=== PATIENT | male | born 1965 | race Caucasian/White ===

== ENCOUNTER 2024-05-12 15:41 | Inpatient (IN) | payer BC, SELFPAY ==
[2024-05-12] VITALS (11 sets, daily range): BP systolic 114–139; BP diastolic 62–93; BMI 25.3
--- NOTE | 2024-05-12 11:12 | ED.GENMED ---
History of Present Illness
General
Chief Complaint: Dizziness
Source: patient
Time Seen by Provider: 05/12/24 10:57
History of Present Illness
History of Present Illness:
This patient is a very pleasant 58-year-old male who presents emergency department complaints of dizziness that started on Friday, described as a sense of spinning, worse when he moves his head, or stands, or certain movements. Sitting in the bed
at rest without movement he does not report dizziness. He also notes discomfort in the back of his neck rating up to the occipital area. This was not sudden in onset, but is persistent. He has associated nausea and occasional vomiting. He denies
diplopia, dysarthria, dysphagia, dyspnea, chest pain or pressure, fever, chills. He describes the headache as bitemporal and 'nagging'. He denies numbness but says that he has a sense of either tingling or feeling cold in his extremities. The
symptoms have continued since Friday which prompted his visit here. Patient states he had similar symptoms in March lasting about 3 days that resolved spontaneously and he attributed to the heat. He states that he did notice Friday evening while
out on the patio that he stood up and momentarily felt 'spins' dizziness that went away promptly. Otherwise, he was asymptomatic until symptoms began on Friday.
Past History
Past History
ED Past Medical History: Other (TIA, hypercholesterolemia)
ED Past Surgical History: Orthopedic
Social History
Tobacco: Smoker
Alcohol: None
Drug: None
Personal:
Living: with family
Employment: Employed
Phy Exam
Physical Exam
Physical Exam:
GENERAL: Alert , in no apparent distress
EYE: pupils equal and reactive, no photophobia, EOMI, 2-3 beats of fatigable right-sided nystagmus, not exacerbated with head movement
NECK: Supple, no significant adenopathy.
ENT: o/p clr, mmm.
CARDIAC: Regular rate and rhythm .
LUNGS: Clear breath sounds bilaterally, no acute respiratory distress, no wheezes/rales/rhonchi
ABDOMEN: Soft, without focal tenderness, no r/g, no cvat
NEUROLOGICAL: Alert and oriented, no focal neuro deficits, motor 5 out of 5, sensory intact, cranial nerves II through XII intact, [id number] normal, visual linn intact
SKIN: Warm and dry, skin intact.
MUSCULOSKELETAL: No edema, well perfused.
PSYCH: Normal and appropriate interaction.
Course
Orders/Labs/Results
Orders:
Orders
05/12/24 10:08
Electrocardiogram (*1) Urgent
Reason for Study: Bradycardia / Tachycardia
05/12/24 10:09
EKG- Treatment ONCE
05/12/24 11:11
CT Head & Neck Angio W/wo IV Urgent
Comment:
Reason For Exam: dizzy, head/neck pain
Cardiac Monitoring- Treatment ONCE
Pulse Ox/cont/shift [RESP] Stat
Quantity: 1
05/12/24 11:17
Complete Blood Count/No Diff Urgent
Comprehensive Metabolic Panel Urgent
Troponin I Urgent
05/12/24 11:28
0.9% Sodium Chloride 1000 ml [Nss] 1,000 ml IV BOLUS
Abnormal Lab Results
05/12/24
11:17
RBC 4.65 L 10^6/uL
(4.70-6.10)
MCH 32.0 H pg
(27.0-31.0)
05/12/24 11:17
05/12/24 11:17
Vital Signs
Initial and Last Documented VS:
Initial Vital Signs
Temp Pulse Resp BP Pulse Ox
98.1 F 46 18 139/86 99
05/12/24 10:02 05/12/24 10:02 05/12/24 10:02 05/12/24 10:02 05/12/24 10:02
Last Documented Vital Signs
Temp Pulse Resp BP Pulse Ox
98.1 F 125 19 125/77 100
05/12/24 10:02 05/12/24 12:15 05/12/24 12:15 05/12/24 12:00 05/12/24 12:31
Update Note
Update Note:
Patient presents to the Emergency Department with dizziness headache nausea____
Number and Complexity of Problems Addressed at the Encounter
� Chronic conditions affecting care:
� Acute Exacerbation and/or Progression of Chronic Illness:
� Differential Diagnosis includes: But not limited to peripheral vertigo, central vertigo such as mass or TIA/CVA, vestibular neuritis, BPPV, etc.
Amount and/or Complexity of Data to be Reviewed and Analyzed
� I performed an independent evaluation of and my interpretation is:
EKG: Read by me, sinus bradycardia, IN interval normal, no acute ischemia
CT:READ BY RADS cta neck/head nad
Xrays:
Laboratory Studies:generally unremarkable
Other:
� Review of other/old records reveals:
� Clinical information was obtained by an independent historian:
� Prescriptions/Medications Considered but not given:
� Further testing considered but not performed:
Risk of Complications and/or Morbidity or Mortality of Patient Management
� Social determinants of health affecting care:
� Discussion with other providers (PCP, Hospitalists, Consultants, etc):
� Escalation of care including admission/observation vs risk of discharge considered: 11:16 AM IV placed, patient placed on monitor as well as pacer pads with code cart pulled to the side and recognition of his bradycardia.
Patient is not currently dizzy, no chest pain, blood pressure stable. Will monitor very closely while pursuing workup.
130 pm neuro w/u unremkarable here, i.e. no acute abnl noted incluidng cta head and neck, no dissection,no mass, nos troke, etc. Deon cardia continues, cards c/s via TT.
Case discussed with cardiology, Dr. Reynaldo SHAVER, agrees with plan for admission, telemetry, and echocardiogram. Patient is describing episodes of vertigo/dizziness. Most recently, he says he was just looking at the wall and noticed that the wall seem to
be moving associated with nausea. This was while were looking midline, no head movement at that time. Those symptoms have resolved with the exception of mild nausea. Unclear if patient's symptoms related to a central vertiginous process such as
TIA or stroke, will need workup as an inpatient for both this and his bradycardia. Blood pressure remains completely stable and he does not describe orthostatic like dizziness. Strongly doubt aortic dissection, no chest pain, back pain, etc. case
d/w dr gilliland for admission.
ED Attending Note
-
Portions of this chart may have been created with voice recognition software.� Occasional wrong word or��sound alike� substitutions may have occurred due to the inherent limitations of voice recognition software.
Discharge Plan
Departure
Patient Disposition: Admit
Date of Disposition: 05/12/24
Time of Disposition: 13:46
Admit to: Telemetry
Presentation/result/management discussed w/ accepting MD/DO: Hospitalist
Condition: Fair
Discharge Problem:
Bradycardia, Dizziness
Referrals:
Jamison Blanco DO [Family Provider] -
Interventions
Interventions:
*Risk Screen - Suicide Last Done: 05/12/24 11:19
ED- Neurological Assessment Last Done: 05/12/24 11:19
ED- Cardiac Assessment Last Done: 05/12/24 11:19
ED Swallowing Screen Last Done: 05/12/24 11:19
Discharge Date and Time
Print Language: SAMI
[2024-05-12 11:25] LABS: Hematocrit 42.4 % (39.0-52.0); Hemoglobin 14.9 g/dL (13.0-18.0); Mean Corp Hgb Conc. 35.1 g/dL (33.0-37.0); Mean Corpuscular Volume 91.2 fL (80.0-94.0); Mean Platelet Volume 10.1 fL (7.4-10.4); Platelet Count 235 10^3/uL (130-400); Red Blood Cell Count 4.65 10^6/uL (4.70-6.10); Red Cell Dist. Width 11.9 % (11.5-14.5); White Blood Cell Count 5.4 10^3/uL (4.8-10.8)
[2024-05-12 11:42] LABS: ALT (SGPT) 17 U/L (0-50); AST (SGOT) 22 U/L (17-59); Albumin 4.1 g/dl (3.5-5.0); Alkaline Phosphatase 54 U/L (38-126); Blood Urea Nitrogen 13 mg/dl (9-20); Calcium 9.3 mg/dl (8.4-10.2); Carbon Dioxide 28 mmol/L (22-30); Chloride 103 mmol/L (98-107); Estimated Creatinine Clearance 77 ml/min; Glucose 99 mg/dl (70-99); Potassium 4.1 mmol/L (3.5-5.1); Sodium 136 mmol/L (135-145); Total Bilirubin 0.6 mg/dl (0.2-1.3); Total Protein 6.3 g/dl (6.3-8.2); eGFR > 60.00
[2024-05-12 11:50] LABS: Troponin I < 0.012 ng/ml
[2024-05-12] MEDS: NSS 1000 IV (11:53)
[2024-05-12] MEDS: REGLAN 10 MG IV (14:21)
--- NOTE | 2024-05-12 15:34 | HPS.HSE ---
Family Physician
-
Family Physician: Jamison Blanco DO
Chief Complaint
-
Vertigo
History of Present Illness
Patient is a 58 years old male with prior history of possible TIA who presents to the emergency room with persistent vertigo with onset about 2 days prior to presentation. Patient describes subjects spinning around, possibly related to head
position. He denies any syncope. Denies any focal findings. Denies any fever or recent illnesses. He recall similar episode about 2 months ago which was self-limited. In addition patient recalls prior history of possible TIA when he described
transient episodes of right sided weakness, altered mental status and inability to speak which again was self-limited and patient was not hospitalized. He was told on follow-up imaging he might had suffered TIA versus CVA.
In addition patient was found to be severely bradycardic with heart rate down to 30s again remains asymptomatic and hemodynamically stable.
Medical History
Past Medical History
Past Medical History: Reports Other (Possible TIA); Denies Arrhythmia, CAD or HTN
Past Surgical History: Reports None
Social History
Tobacco: Smoker
Alcohol: None
Drug: None
Family History
Family History: Not pertinent
Allergies / Home Medications
Allergies reflects when Allergies were last updated in [facility].
Home Medications with original date entered in [facility]
Allergy/Medication List:
Allergies
Allergy/AdvReac Type Severity Reaction Status Date / Time
No Known Allergies Allergy Unverified 05/12/24 11:24
Home Medications
ibuprofen 200 mg tablet (Advil) 400 mg PO Q8HPRN PRN mild pain 05/12/24
omeprazole 20 mg capsule,delayed release 20 mg PO DAILY 05/12/24
therapeutic multivitamin 1 tab PO DAILY 05/12/24
Review of Systems
-
A 12 point ROS was completed and negative except as noted: Yes
Respiratory: Reports See HPI
Cardiac: Reports See HPI
Neurological: Reports See HPI
Physical Exam
Vital Signs
Vital Signs
Temp Pulse Resp BP Pulse Ox
98.1 F 42 9 124/74 99
05/12/24 10:02 05/12/24 14:20 05/12/24 14:20 05/12/24 14:00 05/12/24 14:20
Physical Exam
General: Well Developed, Well Nourished and No Apparent Distress
HEENT: NormoCephalic, Moist mucous membranes and Atraumatic
Respiratory: Clear
Cardiac: S1/S2 and Regular Rhythm; No Murmur or Rub
GI: Soft, Non Tender, Non Distended and Normal Bowel Sounds; No Organomegaly
Rectal: Deferred by Provider
Musculoskeletal: No Clubbing, No Cyanosis and No Edema
Skin: No Rash
Neuro: Awake, Alert, Oriented, AO x 3, Nonfocal/grossly intact, Cranial Nerves Intact and Other (Normal vestibular ocular reflex. No nystagmus. Negative skew deviation)
Laboratory Results
-
05/12/24 11:17
05/12/24 11:17
Laboratory Results
Total Bilirubin 0.6 mg/dl (0.2-1.3) 05/12/24 11:17
AST 22 U/L (17-59) 05/12/24 11:17
ALT 17 U/L (0-50) 05/12/24 11:17
Alkaline Phosphatase 54 U/L (38-126) 05/12/24 11:17
Troponin I < 0.012 ng/ml 05/12/24 11:17
Data Reviewed
-
CT Scan: Report Reviewed by me
Lab Data: Labs Reviewed by me
Impression/Plan
-
IMPRESSION:
Persistent vertigo
Sinus bradycardia
Tobacco use disorder
Prior history of TIA
PLAN:
Presentation with persistent vertigo, not positional.
? Peripheral versus central
Patient with prior history describing episode over 20 years ago with right-sided weakness altered mentation and aphasia with questionable abnormal follow-up imaging not available to review.
Risk factors: Tobacco use.
Exam with no focal findings, normal speech, preserved vestibular ocular reflex, no nystagmus, negative skew deviation
CT CTA negative for NAD.
Not a candidate for lytic treatment.
Admitted for further evaluation.
Neurology consultation.
Serial neurochecks
MRI of the brain.
Physical therapy/vestibular assessment.
Lipid profile
Hemoglobin A1c
Initiated on aspirin.
Sinus bradycardia with heart rate down to 30s
Monitor on telemetry
Echocardiogram
Cardiology consultation.
Tobacco use disorder
Counseled and encouraged to quit
[2024-05-12] MEDS: PROTONIX 40 MG PO (17:24)
[2024-05-12] MEDS: LOW STRENGTH ASPIRIN 81 MG PO (17:24)
--- NOTE | 2024-05-12 17:32 | CON.CAR ---
Addendum entered and electronically signed by Jung Moreno MD 05/12/24 17:58:
58 yo male with PMH of dyslipidemia, tobacco, possible TIA is admitted with dizziness/spinning sensation, nausea/vomiting; worse with head movements. There is not pre-syncope or syncope. We are consulted for bradycardia. Exam with ze, regular,
rhythm; no murmurs; no edema. Tele: SB, avg HR 40. EKG: SB 36 bpm.
His symptoms do not sound like symptomatic bradycardia. We will check echo and monitor tele.
Agree with eval for neuro etiology of sxs with MRI.
Original Note:
Consultation
Consultation Request
Date/Time Consultation Requested: 05/12/241647
Date/Time Consultation Performed: 05/12/241729
Requesting Provider: Dr. Sneed
Performing Provider: Esperanza CAMARENA for Dr. Moreno
Reason for Consultation: bradycardia
Medical History
-
Chief Complaint: dizziness, nausea
History of Present Illness:
58 y/o male with dyslipidemia, smoking, and hx possible TIA (remote, details unclear) who is here for evaluation of dizziness that he describes as 'room moving' sensation, which is worse with position change and head movements. There is associated
nausea and vomiting. Laying down helps. We are consulted for sinus bradycardia noted by EKG and monitor SB 36 BPM. Tele currently shows HR 40 BPM. He denies any syncope.
Past Medical History
Past Medical History: CVA (hx possible TIA) and Hypercholesterolemia
Social History
Tobacco: Smoker (09/25 PPD)
Alcohol: None
Drug: None
Personal:
Living: With Family
Family History
Family History: Reviewed & Not Pertinent
Allergies / Home Medications
Allergy/AdvReac Type Severity Reaction Status Date / Time
No Known Allergies Allergy Unverified 05/12/24 11:24
�Medication �Instructions �Recorded �Confirmed �Type
ibuprofen 200 mg tablet (Advil) 400 mg PO Q8HPRN PRN mild pain 05/12/24 05/12/24 History
omeprazole 20 mg capsule,delayed 20 mg PO DAILY Gastrointestinal 05/12/24 05/12/24 History
release Issue
therapeutic multivitamin 1 tab PO DAILY Supplement 05/12/24 05/12/24 History
Review of Systems
-
History Source: Patient
All other systems: Negative unless noted
Abdomen/GI: Nausea and Vomiting
Neurological: Dizzy
Physical Exam
Vital Signs
Temp Pulse Resp BP Pulse Ox
97.7 F 40 16 124/74 98
05/12/24 16:56 05/12/24 16:56 05/12/24 16:56 05/12/24 16:56 05/12/24 16:56
Lab Results
05/12/24 11:17
05/12/24 11:17
Troponin I < 0.012 ng/ml 05/12/24 11:17
Physical Exam
General: Well Developed, Well Nourished and No Apparent Distress
HEENT: Normocephalic and Anicteric
Respiratory: Clear and Non Labored Respirations
Cardiac: Regular Rhythm (bradycardia)
Musculoskeletal: No Edema
Skin: Warm and Dry
Neuro: AO x 3
Psych: Calm
Impression / Plan
-
Dizziness:
-feels like room moving, noted to be worse with position changes including moving head, nausea with this
-sounds like vertigo
-head CT negative, MRI pending, neuro following
-poss hx TIA per patient
Bradycardia:
-HR 30's-40's (all sinus on my review of EKG and telemetry)
-follow tele
-avoid AV jes agents
-TSH pending
-echo ordered
Smoker:
-recommend quitting, which he is working on
Dyslipidemia:
-lipids to be checked in AM
Data Reviewed
-
EKG: Tracing Personally Visualized and interpreted (SB 36 BPM)
Medical Tests (Nuc Med, Echo etc): Other (echo ordered and pending)
Labs: Labs Reviewed by me
--- NOTE | 2024-05-12 18:00 | PTCARENOTE ---
Received pt from ED at 17:00. Transferred pt from stretcher to bed w/o incident. Pt c/o dizziness when standing and when moving his head while laying down. NIH 0. Pt on tele box #22 SB, HR 30-40s. All other VS WNL. Pt oriented to room, call kelly and
belongings within reach.
--- NOTE | 2024-05-12 18:08 | CON.NEURO4 ---
Consultation - Neurology 4
-
CONSULTING PHYSICIAN: Colt Castaneda MD(Neurology)
REFERRING PHYSICIAN: Hospitalist
DICTATED BY: Colt Castaneda MD
DATE/TIME OF REQUEST: 05/12/2024
DATE/TIME OF CONSULTATION: 05/12/2024 1700
Reason for Consultation: Dizziness
History of Present Illness:
This is a 58 year old right handed male who has presented to the hospital with (chief complaint) of dizziness. He has had no significant past medical history and had been in his US[facility] till 2 weeks ago. At that time he was painting the ballard in his
friends place on a hot summer morning. He became light headed and had to stop and sit. Within a few minutes he recovered and the dizzy spell dissipated. However he was unable to continue painting.
He then returned to his usual activities.
Symptoms recurred on Friday, described dizziness as a sense of head spinning, worse when he moves his head, or with change of position, standing, and with head movements. While Sitting in the bed at rest without moving he does not feel dizzy. He
also notes discomfort in the back of his neck extending up to the occipital area. This has been ongoing for weeks. Dizziness is associated with nausea and occasional vomiting. He denies diplopia, dysarthria, dysphagia, dyspnea, chest pain or
pressure, fever, chills. He describes the headache as bitemporal and 'nagging'. He denies numbness but says that he has a sense of either tingling or feeling cold in his extremities. The symptoms have continued since Friday which prompted his
admission. At the time of my exam he is asymptomatic.
He has asymptomatic bradycardia.
-
Past Medical History: As above
Surgical History: None
Family History: NC
Social History: Smokes . No alcohol
Allergies: NKA
Home Medications: None
Review of Symptoms:
Patient denies any fever, headache, chest pain, shortness of breath, GI or symptoms.
�Per the HPI.�All systems are reviewed negative except above.
Vital Signs:
The patient has a
Temp Pulse Resp BP Pulse Ox
36.5 C 40 16 124/74 98
Physical Exam:
The patient is afebrile, heart sounds S1 and S2 are regular , and chest is clear to auscultation bilaterally.
Neurologic Examination:
The patient is awake, alert and oriented x 3. (He/She) is able to follow commands and answer questions appropriately. There is no aphasia or dysarthria. On cranial nerve assessment, pupils are 3 mm bilateral, round and reactive to light and
accommodation. Visual linn are full. Extraocular movements are intact. Facial sensations are intact and bilaterally symmetrical, there is no facial asymmetry. Hearing is intact bilaterally to normal conversation volume. Tongue palate and uvula
are midline. Sternocleidomastoid strengths are full bilaterally. Motor strengths are 5/5 bilateral upper and lower extremities on medical research [place] scale. There is no drift or involuntary movement noted. Deep tendon reflexes are 2+ bilateral
upper and lower extremities and Babinski is absent bilaterally. Sensations of pain, touch, temperature and vibration are intact and bilaterally symmetrical. There was no extinction noted on double simultaneous stimulation. Coordination is intact by
finger to nose bilaterally.
Rombergs positive. Gait Independent
Lab Results: Addendum
Neuro Imaging: Normal cortical architecture. Normal ventricles
Impression:
Mr. AUBREY ESPANA is a 58 year old M who has presented to the hospital with (symptoms/chief complaint) of dizziness/vertigo
Differentials for the patient's presentation include:
1. Benign positional vertigo
2. Cervical spondylosis
3. Bradycardia
Recommendations:
1. MRI head
2. MRI C-Spine
3. PT/OT
4. Cardiac monitoring/Cardiology consult
5. Meclizine 12.5-25 mg prn
6. B12 level
Discussed patient care with: family and hospitalist
Allergies
-
Allergies
Allergy/AdvReac Type Severity Reaction Status Date / Time
No Known Allergies Allergy Unverified 05/12/24 11:24
Vital Signs and Labs
-
Vital Signs and Labs:
Vital Signs
Temp Pulse Resp BP Pulse Ox
36.5 C 40 16 124/74 98
05/12/24 16:56 05/12/24 16:56 05/12/24 16:56 05/12/24 16:56 05/12/24 16:56
Lab Results
05/12/24 11:17
05/12/24 11:17
Sodium 136 mmol/L (135-145) 05/12/24 11:17
Potassium 4.1 mmol/L (3.5-5.1) 05/12/24 11:17
BUN 13 mg/dl (9-20) 05/12/24 11:17
Glucose 99 mg/dl (70-99) 05/12/24 11:17
Calcium 9.3 mg/dl (8.4-10.2) 05/12/24 11:17
Medications
-
Active Medications
Generic Name Dose Route Start Last Admin
Trade Name Freq PRN Reason Stop Dose Admin
Acetaminophen 650 mg 05/12/24 16:48
Acetaminophen 650 Mg Rectal Suppository RECTAL 06/09/24 16:47
Q4HPRN PRN
NAVARRO, mild pain, or temp >100.4F
Acetaminophen 650 mg 05/12/24 16:48
Acetaminophen 325 Mg Tablet PO 06/09/24 16:47
Q4HPRN PRN
NAVARRO, mild pain, or temp >100.4F
Aspirin 81 mg 05/12/24 17:00 05/12/24 17:24
Aspirin 81 Mg Chewable Tablet PO 06/09/24 16:59 81 mg
DAILY ISABEL Administration
Enoxaparin Sodium 40 mg 05/12/24 18:00 05/12/24 17:34
Enoxaparin Sodium 40 Mg/0.4 Ml Syringe SC 06/09/24 17:59 Not Given
QPM ISABEL
Meclizine HCl 12.5 mg 05/12/24 16:48
Meclizine 12.5 Mg Tablet PO 06/09/24 16:47
Q8HPRN PRN
vertigo
Pantoprazole Sodium 40 mg 05/12/24 17:00 05/12/24 17:24
Pantoprazole 40 Mg Delayed Release Tablet PO 06/09/24 16:59 40 mg
DAILY ISABEL Administration
Sodium Chloride 0 flush 05/12/24 17:00
Sodium Chloride 0.9% (Flush) Syringe IV 06/09/24 16:59
PER PROTOCOL ISABEL
Home Medications
�Medication �Instructions �Recorded
ibuprofen 200 mg tablet (Advil) 400 mg PO Q8HPRN PRN mild pain 05/12/24
omeprazole 20 mg capsule,delayed 20 mg PO DAILY Gastrointestinal 05/12/24
release Issue
therapeutic multivitamin 1 tab PO DAILY Supplement 05/12/24
[2024-05-12 18:45] LABS: TSH 1.13 uIU/ml (0.47-4.68)
[2024-05-12 19:33] LABS: Vitamin B12 343 pg/ml (239-931)
[2024-05-12] MEDS: ANTIVERT 25 MG PO (21:08)
[2024-05-13 03:34] VITALS: BP 112/68
[2024-05-13 07:07] LABS: HDL Cholesterol 50 mg/dl; LDL Cholesterol, Calculated 135 mg/dl; Total Cholesterol 200 mg/dl (50-199); Triglyceride 78 mg/dl (10-149); Very Low Density Lipoprotein 15 mg/dl (0-30)
[2024-05-13] MEDS: LOW STRENGTH ASPIRIN 81 MG PO (07:34)
[2024-05-13] MEDS: ANTIVERT 25 MG PO (07:34)
[2024-05-13] MEDS: PROTONIX 40 MG PO (07:34)
[2024-05-13 08:27] VITALS: BP 120/72
[2024-05-13 08:34] LABS: Glycohemoglobin (HgbA1c) 5.4 % (4.0-5.6)
--- NOTE | 2024-05-13 09:15 | W.PN.NEURO.1 ---
Today's Communication / Plan
-
.
Neuro Assessment/Plan
Assessment
This is a 58-year-old male who presented to on 05/12/24 with report of dizziness which he describes as a room-spinning sensation. He reports a two day history of similar symptoms in early March associated with nausea/vomiting. Then last Friday
05/08/24 he reports standing up and becoming dizzy, which resolved minutes later after sitting back down. Then three days ago on 05/10/24 the spinning sensation started again and was persistent until last night. HR has been notably low here in the
30's-40's which is new as far as the patient knows.
Notably, patient reports possibly having a stroke at age 39. He woke up one morning and couldn't move his right side and couldn't speak. His partner reports that he was agitated/mildly combative. He did not seek medical attention. He stayed in bed
until the next day and reports when he woke up his right side was still slightly weak but he could speak and walk. His symptoms completely resolved in less than 24 hours. About 3 years later, he repots having a fall with head trauma. He had a CT
head at an OSH and reports they told him it showed a 7mm scar from an old stroke. He denies any history of blood clots and has not been taking any blood-thinning medications.
FH: significant for stroke in his sister at age 65 and his maternal grandmother at age 84.
-CTA head/neck 05/12/24: No acute intracranial abnormality. No CTA evidence for high-grade stenosis or occlusion of the arterial vasculature in the head or neck.
I. Vertigo; uncertain etiology. Duration of symptoms is long to be supportive of BPPV but vertigo syndrome possible. Recurrence of symptoms with complete resolution in between episodes less supportive of stroke. Orthostasis possibly contributing to
last week's event. CTA head/neck negative unremarkable.
II. Bradycardia.
III. Question of history of old stroke.
IV. Vitamin B12 deficiency.
Plan
-MRI brain noncontrast pending.
-Goal normotension.
-Monitor on telemetry. Agree with [facility] cardiac monitoring.
-Check orthostatic vital signs BID.
-Physical therapy evaluation.
-B12 level is low at 343, initiate cyanocobalamin 1000mcg PO daily.
-NIHSS and neurological checks per unit guidelines.
-If MRI brain demonstrates an old stroke or acute stroke, will need to initiate antiplatelet and statin therapy.
-DVT prophylaxis.
-Will follow pending results.
Subjective/Objective
Subjective Data
Date of Service: May 13, 2024
No acute events overnight. Patient reports feeling at his baseline today, his dizziness has resolved. He reports a 1/10 left posterior shoulder radiating up his neck discomfort. He denies any vision changes, speech/swallow difficulty, nausea,
numbness, weakness, chest pain, palpitations, and shortness of breath.
Objective Data
Vital Signs
Temp Pulse Resp BP Pulse Ox
97.8 F 42 16 120/72 97
05/13/24 08:27 05/13/24 08:27 05/13/24 08:27 05/13/24 08:27 05/13/24 08:27
Lab Results
05/12/24 11:17
05/12/24 11:17
Sodium 136 mmol/L (135-145) 05/12/24 11:17
Potassium 4.1 mmol/L (3.5-5.1) 05/12/24 11:17
BUN 13 mg/dl (9-20) 05/12/24 11:17
Glucose 99 mg/dl (70-99) 05/12/24 11:17
Calcium 9.3 mg/dl (8.4-10.2) 05/12/24 11:17
LDL Cholesterol, Calc 135 mg/dl 05/13/24 06:17
Vitamin B12 Cancelled 05/12/24 18:30
Patient Allergies
No Known Allergies Allergy (Unverified 05/12/24 11:24)
Review of Systems
-
History Source: Patient
EENT: Negative Blurry Vision, Decreased Vision or Swallowing Difficulty
Respiratory: Negative Cough or Trouble Breathing
Cardiac: Negative Chest Pain or Palpitations
Abdomen/GI: Negative Nausea
Neuro: Headache; Negative Dizzy, Weakness, Numbness, Ataxia, Tremors or Speech Problem
Physical Exam
-
General: Well Developed, Well Nourished and No Apparent Distress
Eyes: No Ptosis and PERRLA
HEENT: Normocephalic and Atraumatic
Neck: Full Range of Motion
Respiratory: No Dyspnea
GI: Non-distended
Extremities: No Clubbing, No Cyanosis and No Edema
Psych: Unremarkable
Extended Neurological Exam
Mood & Affect: Mood Unremarkable and Affect Unremarkable
Attention Span & Concentration: Awake, Alert, Interactive and No Difficulty with 2 Step Request
Memory: Unremarkable and Able to Recall
Tremor: Hand Tremor Absent and Head Tremor Absent
Involuntary Movement: None
Speech: Quality Unremarkable, Quantity Unremarkable and Rate of Production Unremarkable
Cranial Nerve II: Left Eye: Pupillary Size Unremarkable and Visual Toro Intact
Cranial Nerve II: Right Eye: Pupillary Reactivity Unremarkable, Pupillary Size Unremarkable and Visual Toro Intact
Cranial Nerves III, IV, : Extraocular Movement: Extraocular Movement Full in all Directions
Cranial Nerve V: Facial Sensation: Intact to Light Touch
Cranial Nerve VII: Facial Symmetry: Normal Facial Symmetry
Cranial Nerve VIII: Hearing: Unremarkable Hearing to Normal Conversational Volume
Cranial Nerves IX, X: Palate Movement: Palate Elevation Symmetric
Cranial Nerve XI: Shoulder Shrug: Unremarkable
Cranial Nerve XII: Tongue Protusion: Midline
Muscle Strength, Overall: Full Throughout
Muscle Bulk & Tone: Bulk Unremarkable and Tone Unremarkable
Pronator Drift: No Drift in Upper Extremities and No Drift in Lower Extremities
Deep Tendon Reflexes: Unremarkable Throughout
Cold Sensation: Unremarkable
Vibration Sensation: Unremarkable
Touch Sensation: Double Simultaneous Stimulation Unremarkable
Coordination: [id number] Testing Unremarkable
Babinski Sign: Absent Bilaterally
Data Reviewed
-
CT-A: Report Reviewed and Image Reviewed
MRI Head: Pending
Labs: Report Reviewed
Lipid Profile: Report Reviewed
HgbA1C: Report Reviewed
Reviewed with: Physician and Patient
Medications
-
Active Medications
Generic Name Dose Route Start Last Admin
Trade Name Freq PRN Reason Stop Dose Admin
Acetaminophen 650 mg 05/12/24 16:48
Acetaminophen 650 Mg Rectal Suppository RECTAL 06/09/24 16:47
Q4HPRN PRN
NAVARRO, mild pain, or temp >100.4F
Acetaminophen 650 mg 05/12/24 16:48
Acetaminophen 325 Mg Tablet PO 06/09/24 16:47
Q4HPRN PRN
NAVARRO, mild pain, or temp >100.4F
Aspirin 81 mg 05/12/24 17:00 05/13/24 07:34
Aspirin 81 Mg Chewable Tablet PO 06/09/24 16:59 81 mg
DAILY ISABEL Administration
Cyanocobalamin 1,000 mcg 05/13/24 13:00
Cyanocobalamin 1,000 Mcg Tablet PO 06/10/24 12:59
DAILY ISABEL
Enoxaparin Sodium 40 mg 05/12/24 18:00 05/12/24 17:34
Enoxaparin Sodium 40 Mg/0.4 Ml Syringe SC 06/09/24 17:59 Not Given
QPM ISABEL
Pantoprazole Sodium 40 mg 05/12/24 17:00 05/13/24 07:34
Pantoprazole 40 Mg Delayed Release Tablet PO 06/09/24 16:59 40 mg
DAILY ISABEL Administration
Sodium Chloride 0 flush 05/12/24 17:00
Sodium Chloride 0.9% (Flush) Syringe IV 06/09/24 16:59
PER PROTOCOL ISABEL
Home Medications
�Medication �Instructions �Recorded
ibuprofen 200 mg tablet (Advil) 400 mg PO Q8HPRN PRN mild pain 05/12/24
omeprazole 20 mg capsule,delayed 20 mg PO DAILY Gastrointestinal 05/12/24
release Issue
therapeutic multivitamin 1 tab PO DAILY Supplement 05/12/24
NIH Stroke Score
Subsequent NIH Scale
Date of Subsequent NIH Scale: 05/13/24
Time of Subsequent NIH Scale: 09:40
NIH Stroke Score
Level of Consciousness: 0 - Alert
LOC Questions: 0-Answers both correctly
LOC Commands: 0-Performs both correctly
Best Horizontal Gaze: 0-Normal
Visual Toro: 0=Normal, no visual loss
Facial Palsy: 0=Normal, symmetrical
Motor - Right Arm: 0=No drift 10 seconds
Motor - Left Arm: 0=No drift 10 seconds
Motor - Right Le-No drift 5 seconds
Motor - Left Le-No drift 5 seconds
Limb Ataxia: 0-Absent
Sensation: 0-Normal
Best Language: 0-No aphasia
Dysarthria: 0-Normal
Extinction and Inattention: 0-No abnormality
Total Score:: 0
Modified [place] (mRS) Score
Modified [place] Scale (mRS): No symptoms
Score: 0
--- NOTE | 2024-05-13 10:53 | W.PN.CD ---
Today's Communication / Plan
-
48 hr HM as outpatient
Avoid AV jes agents
We will sign off pls call with questions/concerns.
Impression / Plan
-
Dizziness:
-feels like room moving, noted to be worse with position changes including moving head, nausea with this
-cont to appear as vertigo, recommend PT and vestibular rehab
-head CT negative, MRI pending, neuro following
-poss hx TIA per patient
Bradycardia:
-HR 30's-40's (all sinus on my review of EKG and telemetry)
-out patient 48 hr HM for furhter eval, ie symptoms?
Smoker:
-recommend quitting, which he is working on
Dyslipidemia:
-lipids to be checked in AM
Physical Exam
Vital Signs/Labs
Vital Signs
Temp Pulse Resp BP Pulse Ox
97.8 F 42 16 120/72 97
05/13/24 08:27 05/13/24 08:27 05/13/24 08:27 05/13/24 08:27 05/13/24 08:27
05/12/24 05/13/24 05/14/24
06:59 06:59 06:59
Actual Weight 181 lb 10.574 oz
05/12/24 11:17
05/12/24 11:17
Triglycerides 78 mg/dl (10-149) 05/13/24 06:17
LDL Cholesterol, Calc 135 mg/dl 05/13/24 06:17
VLDL Cholesterol, Calc 15 mg/dl (0-30) 05/13/24 06:17
HDL Cholesterol 50 mg/dl 05/13/24 06:17
TSH 1.13 uIU/ml (0.47-4.68) 05/12/24 11:17
LAB Results
05/12/24
11:17
Troponin I < 0.012
Physical Exam
Constitutional: No acute distress
EENT: Anicteric
Cardiovascular: Rhythm & rate is regular and Pedal edema is absent
Respiratory: Respiratory effort normal and Lungs clear to auscul.
GI: Soft
Neuro/Psych: AO x 3
Data Reviewed
-
Date of Service: May 13, 2024
EKG: Tracing Personally Visualized and interpreted (bradycardia)
Echo: Report Reviewed by me
Labs: Labs Reviewed by me
[2024-05-13 11:06] VITALS: BP 119/67
[2024-05-13] MEDS: VITAMIN B-12 1000 MCG PO (13:05)
[2024-05-13 15:56] VITALS: BP 153/86
--- NOTE | 2024-05-13 16:29 | CM ---
Reviewed chart, chart. Met with patient to obtain information for assessment. Patient lives with his spouse in a two story home. Patient stated that he is independent with is ADLs, personal care, dressing bathing and ambulates without device. He is
able to cook, clean, do reverberatory skimmer, and laundry. Patient can drive and can transport himself to his appointments and do his own shopping.
Patient denied any DME in his home.
He has never had any VN. He has not been to a SNF in the past.
Patient has a prescription plan and uses, [facility] in [place].
His PCP is, Jamison Blanco.
Patient stated that he feels he is at baseline and would like to return home when medically cleared.
Plan: Case management will continue to follow and assist with discharge planning. Patient stated that he would like to go home when he is medically stable.
[2024-05-13 16:34] VITALS: BP 131/77; PULSE 44
--- NOTE | 2024-05-13 17:11 | W.DS.TRANS ---
DC Summary - Airway Traffic [employer]
-
Discharge Instructions:
Discharge Diagnosis/Procedures Vertigo.
Bradycardia
Diet Regular
Others Tests heart monitor- cardiology office will call you
to arrange. [phone].
Instructions:
Stand-Alone Forms:
Changes to Home Medications: Yes
Discharge Medications:
DC Medications w/original date entered in [employer]
ibuprofen 200 mg tablet (Advil) 400 mg PO Q8HPRN PRN mild pain 05/12/24
omeprazole 20 mg capsule,delayed release 20 mg PO DAILY Gastrointestinal Issue 05/12/24
therapeutic multivitamin 1 tab PO DAILY Supplement 05/12/24
aspirin 81 mg chewable tablet 81 mg PO DAILY #30 tabs 05/13/24
Home Medication Changes
ASA added
Pending Results: No
== END 2024-05-13 17:35 | disposition home or self-care (01) | DRG 149 ==
LOC: 3 WEST ACU 15:41
PROVIDERS: ADMITTING PHYSICIAN Internal Medicine; CONSULT PHYSICIAN Internal Medicine; CONSULT PHYSICIAN Psychiatry & Neurology Neurology; EMERGENCY PHYSICIAN Emergency Medicine; FAMILY PHYSICIAN Family Medicine
DX: H81.10 Benign paroxysmal vertigo, unspecified ear (principal); E78.00 Pure hypercholesterolemia, unspecified; F17.210 Nicotine dependence, cigarettes, uncomplicated; Z86.73 Personal history of transient ischemic attack (TIA), and cerebral infarction without residual deficits
CPT/HCPCS: 70496; 70498; 70551; 80053; 80061; 82607; 83036; 84443; 84484; 85027; 93005; 93306; 96361; 96374; 97161; 99285; Q9967

== ENCOUNTER → 2024-05-26 12:45 | Outpatient (REF) | payer BC, SELFPAY | LOC: RCS 12:45 | PROVIDERS: ATTENDING PHYSICIAN Internal Medicine; FAMILY PHYSICIAN Family Medicine | DX: R00.1 Bradycardia, unspecified (principal) | CPT/HCPCS: 93225; 93226 ==

== ENCOUNTER 2024-06-04 07:49 | Outpatient (RCR) | payer BC, SELFPAY | END 2024-06-04 23:59 | disposition home or self-care (01) | LOC: RPT 07:49 | PROVIDERS: ATTENDING PHYSICIAN Family Medicine | DX: R42 Dizziness and giddiness (principal); Z73.6 Limitation of activities due to disability | CPT/HCPCS: 97112; 97162 ==

== ENCOUNTER → 2025-08-25 07:00 | Outpatient (REF) | payer BC, SELFPAY | LOC: RAD 07:00 | PROVIDERS: ATTENDING PHYSICIAN Family Medicine | DX: R10.11 Right upper quadrant pain (principal) | CPT/HCPCS: 76700 ==